=== PATIENT | female | born 2000 | race Caucasian/White ===

== ENCOUNTER 2021-03-16 02:29 | Emergency (ER) | payer MEDICAID ==
[~2021-03-16] VITALS: Ht 160 cm; Wt 65.0 kg
[2021-03-16 02:52] VITALS: BP 128/66
--- NOTE | 2021-03-16 03:00 | NUR ---
20 YO F BIB SELF WITH C/C OF 10/10 SHARP EPIGASTRIC PAIN THAT RADIATES TO LOWER ABD X2DAYS. +N/V. PT STATES PAIN WENT AWAY YESTERDAY AFTER VOMITING AND BEGAN AGAIN TODAY. PT STATES DEEP BREATHING INCREASES PAIN. PT DENIES TAKING MEDICATION FOR PAIN. DENIES HX, RX AND ALLERGIES
[2021-03-16] MEDS ORDERED: ONDA-188 SL (03:23)
[2021-03-16] MEDS ORDERED: FAMO-90 PO (03:23)
[2021-03-16] MEDS ORDERED: ACETAMINOPHEN 325 MG TAB PO ONE (03:25)
[2021-03-16] MEDS ORDERED: ONDANSETRON 4 MG ODT PO ONE (03:25)
[2021-03-16] MEDS ORDERED: DICYCLOMINE HCL LIQUID 20 MG, ALUMINUM HYD/MAG/SIMETHICONE 30 ML, LIDOCAINE VISCOUS 2% ... PO ONE ×3 (03:25)
[2021-03-16] MEDS ORDERED: ALUMINUM HYD/MAG/SIMETHICONE 30 ML UDC ONE (03:42)
[2021-03-16] MEDS ORDERED: DICYCLOMINE HCL LIQUID 10 MG/5 ML UDC ONE (03:42)
[2021-03-16 03:50] VITALS: BP 128/66
--- NOTE | 2021-03-16 03:50 | NUR ---
Patient discharged with v/s stable. Written and verbal after care instructions given and explained. Patient alert, oriented and verbalized understanding of instructions. Ambulatory with steady gait. All questions addressed prior to discharge. ID band removed. Patient advised to follow up with PMD. Rx of PEPCID AND ZOFRAN given. Patient educated on indication of medication including possible reaction and side effects. Opportunity to ask questions provided and answered.
== END 2021-03-16 03:50 | disposition home or self-care (01) ==
LOC: MED 02:29
DX: K29.70 Gastritis, unspecified, without bleeding (principal)
CPT/HCPCS: 81002; 81025; 99284; Q0162